=== PATIENT | female | born 2000 | race Caucasian/White ===

== ENCOUNTER 2023-09-12 18:50 | Emergency (ER) | payer MEDICAID, OTHER ==
[~2023-09-12] VITALS: Ht 160 cm; Wt 103.0 kg
[2023-09-12 18:59] VITALS: TEMP 98.7; O2SAT 99
[2023-09-12 21:56] LABS: CLARITY URINE CLEAR (CLEAR); COLOR URINE YELLOW (YELLOW); GLUCOSE URINE NEGATIVE (NEGATIVE); KETONES URINE NEGATIVE (NEGATIVE); LEUKOCYTE ESTERASE URINE TRACE (NEGATIVE); NITRITE URINE NEGATIVE (NEGATIVE); OCCULT BLOOD URINE NEGATIVE (NEGATIVE); PH URINE 7.5 (4.5-8.0); PROTEIN URINE NEGATIVE (NEGATIVE); SPECIFIC GRAVITY URINE 1.004 (1.005-1.030); UROBILINOGEN URINE 0.2 E.U./dL (0.2-1.0)
[2023-09-12 22:11] LABS: WBC URINE 0-2 /hpf (0-2)
[2023-09-12 22:12] LABS: BACTERIA URINE 1+; RBC URINE 0-2 /hpf (0-2); SQUAMOUS EPITHELIAL CELL URINE FEW /lpf (RARE/1+)
[2023-09-12] MEDS: DOXYCYCLINE HYCLATE 100MG CAPSULE PO ONE (23:06)
[2023-09-12] MEDS: METRONIDAZOLE 500MG TABLET PO ONE (23:06)
[2023-09-12] MEDS: CEFTRIAXONE SODIUM 500MG VIAL IM ONE (23:06)
[2023-09-13] MEDS ORDERED: DOXY100T2 MT (00:52)
[2023-09-13] MEDS ORDERED: DOLU50TA MT (00:53)
[2023-09-13] MEDS ORDERED: METR-167 MT (00:53)
[2023-09-13] MEDS ORDERED: VIRE MT (00:53)
[2023-09-13 01:15] VITALS: BP 144/87; PULSE 78; RESP 18
[2023-09-14 19:09] LABS: CHLAMYDIA TRACHOMATIS NAA Negative (Negative); NEISSERIA GONORRHOEAE NAA Negative (Negative)
== END 2023-09-13 01:16 | disposition home or self-care (01) ==
LOC: ER 18:50
DX: T76.21XA Adult sexual abuse, suspected, initial encounter (principal); Z11.3 Encounter for screening for infections with a predominantly sexual mode of transmission
CPT/HCPCS: 99283; 86592; 81003; 81025; 36415; 96372; 87491; 87591; J0696